=== PATIENT | female | born 1990 | race Caucasian/White ===

== ENCOUNTER → 2022-07-27 | Outpatient (CLI) | payer OTHER ==
[2022-07-27 11:19] LABS: HEMATOCRIT 41.5 % (36.0-47.0); HEMOGLOBIN 13.7 g/dl (12.0-15.5); MEAN CORPUSCULAR HEMOGLOBIN 30.2 pg (27.0-33.0); MEAN CORPUSCULAR VOLUME 91.4 fl (80.0-96.0); PLATELET COUNT, AUTOMATED 232 10^3/uL (150-450); RED BLOOD COUNT 4.54 10^6/uL (4.00-5.40); WHITE BLOOD COUNT 8.1 10^3/uL (4.0-10.0)
== END ==
LOC: M PLALAB 07:39
PROVIDERS: ATTEND Internal Medicine Hematology
DX: I26.93 Single subsegmental thrombotic pulmonary embolism without acute cor pulmonale (principal)
CPT/HCPCS: 36415; 81240; 83090; 85027; 85240; 85300; 85303; 85306; 85379; 85598; G0463

== ENCOUNTER → 2022-10-26 | Outpatient (CLI) | payer OTHER | LOC: M PLALAB 07:45 | PROVIDERS: ATTEND Internal Medicine Hematology | DX: I26.93 Single subsegmental thrombotic pulmonary embolism without acute cor pulmonale (principal) | CPT/HCPCS: 36415; 85379; G0463 ==

== ENCOUNTER → 2023-01-25 | Outpatient (CLI) | payer OTHER | LOC: M PLALAB 11:26 | PROVIDERS: ATTEND Internal Medicine Hematology | DX: I26.93 Single subsegmental thrombotic pulmonary embolism without acute cor pulmonale (principal) ==

== ENCOUNTER → 2023-03-21 | Outpatient (CLI) | payer OTHER | LOC: M PLALAB 09:55 | PROVIDERS: ATTEND Internal Medicine Hematology | DX: I26.93 Single subsegmental thrombotic pulmonary embolism without acute cor pulmonale (principal) ==

== ENCOUNTER → 2023-05-12 | Outpatient (CLI) | payer OTHER | LOC: M PLALAB 07:19 | PROVIDERS: ATTEND Internal Medicine Hematology | DX: I26.93 Single subsegmental thrombotic pulmonary embolism without acute cor pulmonale (principal) ==

== ENCOUNTER → 2023-06-03 | Outpatient (CLI) | payer OTHER | LOC: M PLALAB 08:37 | PROVIDERS: ATTEND Internal Medicine Hematology | DX: I26.93 Single subsegmental thrombotic pulmonary embolism without acute cor pulmonale (principal) ==

== ENCOUNTER → 2023-09-05 | Outpatient (CLI) | payer OTHER | LOC: M PLALAB 13:10 | PROVIDERS: ATTEND Internal Medicine Hematology | DX: I26.93 Single subsegmental thrombotic pulmonary embolism without acute cor pulmonale (principal) ==